=== PATIENT | female | born 2000 | race Caucasian/White ===

== ENCOUNTER 2021-11-08 14:01 | Emergency (ER) | payer MEDICAID ==
[~2021-11-08] VITALS: Ht 162.6 cm; Wt 94.0 kg
[2021-11-08 14:04] VITALS: BP 116/73
[2021-11-08] MEDS ORDERED: LIDOCAINE 5% PATCH TOP SCH (15:45)
[2021-11-08] MEDS ORDERED: METHOCARBAMOL 750MG TABLET PO SCH (15:45)
[2021-11-08] MEDS ORDERED: KETOROLAC 60MG/2ML VIAL IM ONE (15:45)
[2021-11-08] MEDS ORDERED: ACETAMINOPHEN 325MG TABLET PO ONE (15:45)
[2021-11-08] MEDS ORDERED: TOPUD PO (16:48)
[2021-11-08] MEDS ORDERED: METH-653 MT (16:48)
[2021-11-08] MEDS ORDERED: LIDO1ADH23 TP (16:48)
[2021-11-08] MEDS ORDERED: IBUP-2028 MT (16:48)
== END 2021-11-08 18:00 | disposition home or self-care (01) ==
LOC: ER 14:45
DX: S13.4XXA Sprain of ligaments of cervical spine, initial encounter (principal); R07.89 Other chest pain; M79.671 Pain in right foot; M54.89 Other dorsalgia; R10.9 Unspecified abdominal pain; M79.18 Myalgia, other site; V47.5XXA Car driver injured in collision with fixed or stationary object in traffic accident, initial encounter; Y93.89 Activity, other specified; Y92.488 Other paved roadways as the place of occurrence of the external cause; E66.01 Morbid (severe) obesity due to excess calories; Z68.35 Body mass index [BMI] 35.0-35.9, adult
CPT/HCPCS: 71045; 73630; 81025; 96372; 99284; J1885

== ENCOUNTER 2022-06-23 18:36 | Emergency (ER) | payer MEDICAID, OTHER ==
[~2022-06-23] VITALS: Ht 170.2 cm; Wt 99.0 kg
[~2022-06-23 18:36] MED LIST: IBUP-2028 MT; LIDO1ADH23 TP; METH-653 MT; TOPUD PO
[2022-06-23] MEDS ORDERED: SODIUM CHLORIDE 0.9% 1,000 ML IV ONE (18:45)
[2022-06-23] MEDS ORDERED: ACETAMINOPHEN 325MG TABLET PO PRN (18:45)
[2022-06-23 19:10] LABS: BASOPHILS % 0.4 % (0.0-2.0); EOSINOPHILS % 0.4 % (0.0-5.0); HEMATOCRIT. 38.4 % (36.0-48.0); HEMOGLOBIN. 12.7 g/dL (12.0-16.0); MEAN CORPUSCULAR HEMOGLOBIN 29.9 pg (28.0-32.0); MEAN CORPUSCULAR VOLUME 90.5 fL (81.0-99.0); MEAN PLATELET VOLUME 9.4 fl (7.4-10.4); MONOCYTES % 6.1 % (2.0-8.0); NEUTROPHILS % 72.1 % (40.0-76.0); PLATELET 260 x1000/uL (130-400); RED BLOOD CELL COUNT 4.24 mill/uL (4.2-5.4)
[2022-06-23 19:16] LABS: CHLORIDE 107 mEq/L (98-107)
[2022-06-23 19:57] LABS: B-HCG QUANTITATIVE 23764 mIU/mL (<3)
[2022-06-23 22:30] VITALS: BP 124/68
[2022-06-23] MEDS ORDERED: ACET-2708 MT (22:30)
== END 2022-06-23 22:44 | disposition home or self-care (01) ==
LOC: ER 18:36
DX: O20.0 Threatened abortion (principal); Z3A.16 16 weeks gestation of pregnancy
CPT/HCPCS: 36415; 76805; 76830; 80053; 84702; 85025; 86850; 86900; 86901; 96360; 96361; 99284; J7030